=== PATIENT | male | born 1950 | race Caucasian/White ===

== ENCOUNTER 2024-02-15 12:20 | Outpatient (CLI) | payer MEDICARE ==
[~2024-02-15 12:20] MED LIST: Magnevist 469MG/ML 20 ML VIAL ONE
== END 2024-02-15 12:21 | disposition home or self-care (01) ==
LOC: CSHMRI 12:20
PROVIDERS: ATTEND Radiology Radiation Oncology
DX: C61 Malignant neoplasm of prostate (principal)
CPT/HCPCS: 72197; 82565